=== PATIENT | male | born 1985 | race Two or more races ===

== ENCOUNTER 2020-07-02 14:14 | Emergency (ER) | payer SELFPAY ==
[~2020-07-02] VITALS: Ht 177.8 cm; Wt 119.7 kg
[2020-07-02 14:45] LABS: Basophils # (auto) 0.1 10 ^3/uL (0-0.2); Eosinophils # (auto) 0.3 10 ^3/uL (0-0.8); Monocytes # (auto) 0.7 10 ^3/uL (0-1.3)
[2020-07-02 14:47] LABS: Basophils % (auto) 0.8 % (0.0-2.0); Eosinophils % (auto) 3.1 % (0.0-7.0); Hematocrit 43.4 % (41.0-53.0); Hemoglobin 16.2 g/dL (13.5-17.5); Lymphocytes # (auto) 3.5 10 ^3/uL (0.4-5.4); Lymphocytes % (auto) 34.1 % (10.0-50.0); Mean Corpuscular Hemoglobin 36.1 pg (28.0-32.0); Mean Corpuscular Hgb Conc. 37.4 g/dL (32.0-36.0); Mean Corpuscular Volume 96.7 fL (80.0-100.0); Monocytes % (auto) 7.2 % (0.0-12.0); Neutrophils # (auto) 5.6 10 ^3/uL (1.6-8.6); Neutrophils % (auto) 54.8 % (37.0-80.0); Nucleated Red Blood Cells % 0.2 %; Red Blood Cells 4.49 10^6/uL (4.5-5.90); White Blood Cell 10.3 10^3/uL (4.4-10.8)
[2020-07-02 15:03] LABS: Albumin 3.4 g/dL (3.4-5.0); Anion Gap 10 (5-15); Calcium 7.5 mg/dL (8.5-10.1); Carbon Dioxide 20 mmol/L (21-32); Chloride 107 mmol/L (98-107); Glucose 139 mg/dL (74-106); Potassium 4.1 mmol/L (3.5-5.1); Sodium 137 mmol/L (136-145)
[2020-07-02 15:10] LABS: Alkaline Phosphatase 102 U/L (45-117); Bilirubin, Total 0.6 mg/dL (0.2-1.0); GFR African American 115 mL/min; GFR Non-African American 95 mL/min
[2020-07-02] MEDS ORDERED: DONNATAL 5ml ORAL Elix (BELLADONNA ALK-PHENOBARB) PO ONE (16:00)
[2020-07-02] MEDS ORDERED: ALUM & MAG HYDROX-SIMETH LIQ(MAALOX) 30 ML PO ONE (16:00)
[2020-07-02] MEDS ORDERED: FAMOTIDINE 20 MG TAB PO ONE (16:00)
[2020-07-02 16:20] LABS: Alanine Aminotransferase 25 U/L (16-61); Aspartate Aminotransferase 17 U/L (15-37); BUN/Creatinine Ratio 14.7; Blood Urea Nitrogen 14 mg/dL (7-18)
[2020-07-02 16:21] LABS: Blood Alcohol < 3.0 mg/dL (0-5); Total Protein 7.9 g/dL (6.4-8.2)
[2020-07-02 16:58] LABS: Magnesium 2.3 mg/dL (1.6-2.6)
[2020-07-02] MEDS ORDERED: FOLIC ACID 1 MG, MULTIPLE VITAMIN 10 ML, MAGNESIUM SULF SDV 50% 8 MEQ, THIAMINE INJ 100... INJ SCH ×5 (17:00)
[2020-07-02] MEDS ORDERED: FOLIC ACID 1 MG, MULTIPLE VITAMIN 10 ML, THIAMINE INJ 100 MG in SODIUM CHLORIDE 0.9% 1,... INJ SCH (18:00)
[2020-07-02 18:33] LABS: Urine Bacteria NONE SEEN /hpf (None Seen); Urine Blood TRACE /uL (Negative); Urine Specific Gravity 1.021 (1.001-1.035); Urine WBC 1 /hpf (0 - 3)
[2020-07-02 18:49] LABS: Amphetamine Screen, Urine POSITIVE (NEGATIVE); Barbiturate Scree,Urine NEGATIVE (NEGATIVE); Benzodiazephine Screen, Urine NEGATIVE (NEGATIVE); Cannabinoid Screen, Urine POSITIVE (NEGATIVE); Cocaine Screen, Urine NEGATIVE (NEGATIVE); Phencyclidine Screen, Urine NEGATIVE (NEGATIVE)
[2020-07-02 18:56] LABS: Opiate Scree,Urine NEGATIVE (NEGATIVE)
[2020-07-02 19:26] VITALS: BP 134/78
== END 2020-07-02 19:45 | disposition home or self-care (01) ==
LOC: ER 14:14
DX: R07.89 Other chest pain (principal); R10.13 Epigastric pain; F10.10 Alcohol abuse, uncomplicated; F12.10 Cannabis abuse, uncomplicated; Y90.9 Presence of alcohol in blood, level not specified
CPT/HCPCS: 36415; 71046; 80053; 80307; 80320; 81001; 83690; 83735; 84484; 85025; 96365; 96366; 99285; J3411; J3475; J7030; 93005

== ENCOUNTER 2023-10-01 10:21 | Inpatient (IN) | payer OTHER ==
[~2023-10-01] VITALS: Ht 177.8 cm; Wt 109.2 kg
[2023-10-01 12:00] LABS: Chloride 106 mmol/L (98-107); Potassium 3.9 mmol/L (3.5-5.1); Sodium 138 mmol/L (136-145)
[2023-10-01 12:01] LABS: Anion Gap 9 (5-15); Carbon Dioxide 23 mmol/L (20-30)
[2023-10-01 12:02] LABS: Calcium 9.4 mg/dL (8.7-10.4)
[2023-10-01 12:07] LABS: Glucose 117 mg/dL (74-106); Lipase 355 U/L (12-53)
[2023-10-01 12:09] LABS: BUN/Creatinine Ratio 5.5 (10.0-20.0); Blood Urea Nitrogen < 5 mg/dL (9-23)
[2023-10-01 12:24] LABS: Basophils # (auto) 0.1 10 ^3/uL (0-0.2); Basophils % (auto) 0.5 % (0.0-2.0); Eosinophils # (auto) 0.2 10 ^3/uL (0-0.8); Eosinophils % (auto) 1.5 % (0.0-7.0); Hematocrit 49.7 % (41.0-53.0); Hemoglobin 17.4 g/dL (13.5-17.5); Lymphocytes # (auto) 2.3 10 ^3/uL (0.4-5.4); Lymphocytes % (auto) 21.6 % (10.0-50.0); Mean Corpuscular Hemoglobin 36.5 pg (28.0-32.0); Mean Corpuscular Hgb Conc. 35.1 g/dL (32.0-36.0); Mean Corpuscular Volume 103.9 fL (80.0-100.0); Monocytes # (auto) 0.6 10 ^3/uL (0-1.3); Monocytes % (auto) 5.7 % (0.0-12.0); Neutrophils # (auto) 7.5 10 ^3/uL (1.6-8.6); Neutrophils % (auto) 70.7 % (37.0-80.0); Nucleated Red Blood Cells % 0.2 %; Red Blood Cells 4.78 10^6/uL (4.5-5.90); Red Cell Distribution Width 15.4 % (11.8-14.3); White Blood Cell 10.5 10^3/uL (4.4-10.8)
[2023-10-01 13:56] LABS: Urine Bacteria None Seen /hpf (None Seen)
[2023-10-01 14:16] LABS: Urine Blood Negative /uL (Negative); Urine Clarity Clear (Clear); Urine Color Yellow (Yellow); Urine Mucus FEW (None Seen); Urine Protein, UAD TRACE (Negative); Urine Urobilinogen Normal (Negative); Urine WBC 1 /hpf (0 - 3)
[2023-10-01] MEDS ORDERED: MORPHINE SULFATE INJ 2 MG/ml SYRG IV PRN (15:15)
[2023-10-01] MEDS ORDERED: DOCUSATE SOD 100 MG CAP PO PRN (15:15)
[2023-10-01] MEDS ORDERED: NITROGLYCERIN 0.4 MG SL TAB SL PRN (15:15)
[2023-10-01] MEDS ORDERED: SODIUM CHLORIDE 0.9% 1,000 ML IV SCH (15:15)
[2023-10-01] MEDS ORDERED: ONDANSETRON HCL 4 MG/2 ML VIAL IV PRN (15:15)
[2023-10-01] MEDS ORDERED: HYDROcodone-ACET 5/325MG TAB PO PRN (15:15)
[2023-10-01] MEDS ORDERED: ACETAMINOPHEN 325 MG TAB PO PRN (15:15)
[2023-10-01] MEDS: IOHEXOL 300 MG/ML 100ML BOTTLE IJ ONE (17:06)
[2023-10-01] MEDS: SODIUM CHLORIDE 0.9% 1,000 ML IV ONE (17:16)
[2023-10-01] MEDS: chlordiazePOXIDE HCL 25 MG CAP PO SCH (17:21)
[2023-10-01] MEDS: ONDANSETRON HCL 4 MG/2 ML VIAL IV ONE (17:21)
[2023-10-01] MEDS: MORPHINE SULFATE 4 MG/ML SYR/VIAL IV ONE (17:22)
[2023-10-01] MEDS: SODIUM CHLORIDE 0.9% 1,000 ML IV SCH (22:07)
[2023-10-01] MEDS: MORPHINE SULFATE INJ 2 MG/ml SYRG IV PRN (23:40)
[2023-10-01] MEDS: FOLIC ACID 1 MG, MULTIPLE VITAMIN 10 ML, MAGNESIUM SULF SDV 50% 8 MEQ, THIAMINE INJ 100... INJ SCH (23:40)
[2023-10-02] VITALS (12 sets, daily range): BP systolic 124–140; BP diastolic 80–99; PULSE 63–93; RESP 17–20; TEMP 97.5–98.4; O2SAT 96–99
[2023-10-02 07:19] LABS: Alanine Aminotransferase 63 U/L (7-40); Albumin 3.7 g/dL (3.2-4.8); Alkaline Phosphatase 107 U/L (46-116); Amylase 226 U/L (30-118); Anion Gap 3 (5-15); Aspartate Aminotransferase 38 U/L (13-40); Calcium 8.6 mg/dL (8.7-10.4); Carbon Dioxide 27 mmol/L (20-30); Chloride 106 mmol/L (98-107); Glucose 117 mg/dL (74-106); Potassium 4.3 mmol/L (3.5-5.1); Sodium 136 mmol/L (136-145)
[2023-10-02 07:20] LABS: Bilirubin, Total 1.6 mg/dL (0.2-1.0); Total Protein 6.9 g/dL (5.7-8.2)
[2023-10-02 07:24] LABS: BUN/Creatinine Ratio 5.8 (10.0-20.0); Blood Urea Nitrogen < 5 mg/dL (9-23)
[2023-10-02 07:27] LABS: Lipase 852 U/L (12-53)
[2023-10-02 07:51] LABS: Basophils # (auto) 0 10 ^3/uL (0-0.2); Basophils % (auto) 0.5 % (0.0-2.0); Eosinophils # (auto) 0.3 10 ^3/uL (0-0.8); Eosinophils % (auto) 2.6 % (0.0-7.0); Hematocrit 44.3 % (41.0-53.0); Hemoglobin 15.6 g/dL (13.5-17.5); Lymphocytes # (auto) 2.1 10 ^3/uL (0.4-5.4); Lymphocytes % (auto) 19.4 % (10.0-50.0); Mean Corpuscular Hemoglobin 37.3 pg (28.0-32.0); Mean Corpuscular Hgb Conc. 35.3 g/dL (32.0-36.0); Mean Corpuscular Volume 105.5 fL (80.0-100.0); Monocytes # (auto) 0.7 10 ^3/uL (0-1.3); Monocytes % (auto) 6.2 % (0.0-12.0); Neutrophils # (auto) 7.6 10 ^3/uL (1.6-8.6); Neutrophils % (auto) 71.3 % (37.0-80.0); Nucleated Red Blood Cells % 0.3 %; Red Cell Distribution Width 16.1 % (11.8-14.3); White Blood Cell 10.6 10^3/uL (4.4-10.8)
[2023-10-02] MEDS: LACTATED RINGER'S 1,000 ML IV SCH ×2 (08:57→15:39)
[2023-10-02] MEDS: chlordiazePOXIDE HCL 25 MG CAP PO SCH (21:11)
[2023-10-03 01:00] VITALS: BP 135/94; PULSE 81; RESP 16; TEMP 98.2; O2SAT 99
[2023-10-03 05:00] VITALS: BP 118/84; PULSE 86; RESP 18; TEMP 98.6; O2SAT 98
[2023-10-03 07:33] LABS: Chloride 106 mmol/L (98-107); Potassium 3.6 mmol/L (3.5-5.1); Sodium 136 mmol/L (136-145)
[2023-10-03 07:34] LABS: Anion Gap 5 (5-15); Carbon Dioxide 25 mmol/L (20-30)
[2023-10-03 07:35] LABS: Calcium 8.6 mg/dL (8.7-10.4)
[2023-10-03 07:39] LABS: Glucose 99 mg/dL (74-106)
[2023-10-03 07:40] LABS: Lipase 313 U/L (12-53)
[2023-10-03 07:41] LABS: Amylase 139 U/L (30-118); Blood Urea Nitrogen < 5 mg/dL (9-23)
[2023-10-03 07:44] LABS: Eosinophils # (auto) 0.5 10 ^3/uL (0-0.8); Lymphocytes # (auto) 2.5 10 ^3/uL (0.4-5.4); Monocytes # (auto) 0.7 10 ^3/uL (0-1.3); Neutrophils # (auto) 6.1 10 ^3/uL (1.6-8.6); Nucleated Red Blood Cells % 0.2 %; White Blood Cell 9.8 10^3/uL (4.4-10.8)
[2023-10-03 07:45] LABS: Basophils # (auto) 0 10 ^3/uL (0-0.2); Basophils % (auto) 0.4 % (0.0-2.0); Eosinophils % (auto) 4.9 % (0.0-7.0); Hematocrit 44.2 % (41.0-53.0); Hemoglobin 15.5 g/dL (13.5-17.5); Lymphocytes % (auto) 25.2 % (10.0-50.0); Mean Corpuscular Hemoglobin 36.7 pg (28.0-32.0); Mean Corpuscular Hgb Conc. 35.1 g/dL (32.0-36.0); Mean Corpuscular Volume 104.6 fL (80.0-100.0); Monocytes % (auto) 6.7 % (0.0-12.0); Neutrophils % (auto) 62.8 % (37.0-80.0); Red Blood Cells 4.22 10^6/uL (4.5-5.90); Red Cell Distribution Width 15.5 % (11.8-14.3)
[2023-10-03 08:00] VITALS: PULSE 82; PULSE 85; RESP 18; O2SAT 98
[2023-10-03 09:12] VITALS: BP 129/92; PULSE 85; RESP 18; TEMP 98.2; O2SAT 98
[2023-10-03 13:06] VITALS: BP 126/87; PULSE 75; RESP 21; TEMP 98.3; O2SAT 98
[2023-10-03 14:02] VITALS: BP 126/87; PULSE 75; RESP 21; TEMP 98.3; O2SAT 98
[2023-10-03] MEDS ORDERED: chlordiazePOXIDE HCL 25 MG CAP PO SCH (20:00)
[2023-10-05] MEDS ORDERED: chlordiazePOXIDE HCL 25 MG CAP PO SCH (07:00)
== END 2023-10-03 15:03 | disposition home or self-care (01) | DRG 282 ==
LOC: ER 10:25 → TELE 15:17 → TELE-WESTW 22:21
PROVIDERS: ADMIT Internal Medicine; ATTEND Internal Medicine
DX: K85.20 Alcohol induced acute pancreatitis without necrosis or infection (principal); F10.239 Alcohol dependence with withdrawal, unspecified; Z79.899 Other long term (current) drug therapy; Y90.0 Blood alcohol level of less than 20 mg/100 ml
CPT/HCPCS: 36415; 74177; 80048; 80053; 80320; 81001; 82150; 83605; 83690; 85025; G0378; J2405